=== PATIENT | female | born 1995 | race Caucasian/White ===

== ENCOUNTER 2017-09-07 22:26 | Emergency (ER) | payer MEDICAID ==
[~2017-09-07] VITALS: Ht 157.5 cm; Wt 60.0 kg
[2017-09-07] MEDS ORDERED: ONDA4TAB9 SL (23:46)
[2017-09-07] MEDS ORDERED: ALBU8.5H8 INH (23:46)
[2017-09-07 23:55] VITALS: BP 107/61
== END 2017-09-07 23:56 | disposition home or self-care (01) ==
LOC: ER 22:27
DX: R11.0 Nausea (principal); F15.10 Other stimulant abuse, uncomplicated
CPT/HCPCS: 99283